=== PATIENT | female | born 1940 | race Caucasian/White ===

== ENCOUNTER → 2018-07-24 14:47 | Outpatient (CLI) | payer MEDICARE, SELFPAY ==
[2018-08-01 06:07] LABS: Clam <0.10 kU/L (Class 0); Codfish <0.10 kU/L (Class 0); Corn <0.10 kU/L (Class 0); Egg, White <0.10 kU/L (Class 0); Milk (Cow) <0.10 kU/L (Class 0); Peanut <0.10 kU/L (Class 0); SCALLOP <0.10 kU/L (Class 0); Shrimp <0.10 kU/L (Class 0); Soybean <0.10 kU/L (Class 0); Walnut, (Food) <0.10 kU/L (Class 0); Wheat <0.10 kU/L (Class 0)
[2018-08-01 12:32] LABS: SESAME SEED <0.10 kU/L (Class 0)
[2018-08-04 12:07] LABS: Alternaria tenuis <0.10 kU/L (Class 0); Ash, White <0.10 kU/L (Class 0); Aspergillus fumigatus <0.10 kU/L (Class 0); Bermuda Grass <0.10 kU/L (Class 0); Birch <0.10 kU/L (Class 0); Black Walnut <0.10 kU/L (Class 0); Cat Hair / Dander,Stand <0.10 kU/L (Class 0); Cedar, Mountain <0.10 kU/L (Class 0); Cladosporium herbarum <0.10 kU/L (Class 0); Cockroach, American <0.10 kU/L (Class 0); Cottonwood <0.10 kU/L (Class 0); D farinae Mite <0.10 kU/L (Class 0); D pteronyssinus <0.10 kU/L (Class 0); Dog Epithelia <0.10 kU/L (Class 0); Elm, American White <0.10 kU/L (Class 0); Immunoglobulin E < 2 IU/mL (6-495); Maple/Box Elder <0.10 kU/L (Class 0); Mulberry, White <0.10 kU/L (Class 0); Oak, White <0.10 kU/L (Class 0); PROEL- A/G Ratio 1.3 (0.7-1.7); PROEL- Albumin 3.6 g/dL (2.9-4.4); PROEL- Alpha-1 Globulin 0.3 g/dL (0.0-0.4); PROEL- Alpha-2 Globulin 0.8 g/dL (0.4-1.0); PROEL- Gamma Globulin 0.8 g/dL (0.4-1.8); PROEL- Globulin, Total 2.8 g/dL (2.2-3.9); PROEL- TOTAL PROTEIN 6.4 g/dL (6.0-8.5); Pecan <0.10 kU/L (Class 0); Penicillium Notatum <0.10 kU/L (Class 0); Pigweed, Rough <0.10 kU/L (Class 0); Ragweed, Short/Common <0.10 kU/L (Class 0); Russian Thistle <0.10 kU/L (Class 0); Sheep Sorrel <0.10 kU/L (Class 0); Sycamore, American <0.10 kU/L (Class 0); Timothy Grass <0.10 kU/L (Class 0)
[2018-08-05 12:50] LABS: C1 EST Inhibitor, Functional 107 (.); C1 Esterase Inhibitor, Quant 27 mg/dL (21-39); Hep C Antibodies <0.1 s/co ratio (0.0-0.9); Mouse Urine <0.10 kU/L (Class 0)
== END ==
PROVIDERS: Family Provider Family Medicine Geriatric Medicine; PCP Family Medicine Geriatric Medicine; Referring Provider Otolaryngology Otolaryngology/Facial Plastic Surgery; Visit Provider Otolaryngology Otolaryngology/Facial Plastic Surgery
DX: T78.40XA Allergy, unspecified, initial encounter (principal); T78.3XXA Angioneurotic edema, initial encounter
CPT/HCPCS: 36415; 82785; 83520; 84165; 86003; 86160; 86161; 86803

== ENCOUNTER → 2019-10-21 | Outpatient (CLI) | payer MEDICARE, SELFPAY ==
--- NOTE | 2019-10-21 11:20 | EKG12_ITS ---
Test Reason : PREOP Blood Pressure : / mmHG Vent. Rate : 083 BPM Atrial Rate : 083 BPM P-R Int : 204 ms QRS Dur : 086 ms QT Int : 404 ms P-R-T Axes : 051 -20 062 degrees QTc Int : 474 ms Normal sinus rhythm Low voltage QRS Borderline ECG Confirmed by TEOFILO PARKER ([id number]), editor school photograph ROHAN ROE ([id number]) on 10/25/2019 2:10:34 PM Referred By: Tony Gamble Confirmed By:TEOFILO PARKER
[2019-10-21 11:37] LABS: Hematocrit 43.9 % (37-47); Hemoglobin 14.4 g/dL (12.0-15.0); Mean Corp Hgb Conc 32.8 g/dL (32-36); Mean Corpuscular Hgb 32.1 pg (27.0-32.0); Mean Platelet Vol. 10.2 fl (6.2-12.0); Platelet Count 184 K/mm3 (150-450); RBC Distribution Width CV 12.9 % (11.6-14.6); RBC Distribution Width SD 45.6 fl (35.1-43.9); Red Blood Count 4.48 M/mm3 (4.2-5.4); White Blood Count 6.5 K/mm3 (4.4-11.0)
[2019-10-21 12:06] LABS: Anion Gap 5 (5-15); BUN 17 mg/dL (7-18); BUN/Creat Ratio 17.3 RATIO (10-20); Calcium,Total 9.3 mg/dL (8.5-10.1); Chloride 110 mmol/L (98-107); Creatinine, Serum 0.98 mg/dL (0.55-1.02); EST Glomerular Filtration Rate 58 mL/min (>60); Est Glom Filt Rate - Afr Amer 70 mL/min (>60); Glucose 107 mg/dL (74-106); Potassium 3.7 mmol/L (3.5-5.1); Sodium Level 141 mmol/L (136-145)
== END | disposition home or self-care (01) ==
PROVIDERS: PCP Nurse Practitioner Family; Referring Provider Surgery; Visit Provider Surgery
DX: Z01.812 Encounter for preprocedural laboratory examination (principal); I87.2 Venous insufficiency (chronic) (peripheral); E03.9 Hypothyroidism, unspecified; M79.606 Pain in leg, unspecified
CPT/HCPCS: 36415; 80048; 85027; 93005

== ENCOUNTER → 2019-10-25 | Outpatient (CLI) | payer MEDICARE, SELFPAY | END | disposition home or self-care (01) | PROVIDERS: PCP Nurse Practitioner Family; Referring Provider Surgery; Visit Provider Surgery | DX: I87.2 Venous insufficiency (chronic) (peripheral) (principal); E03.9 Hypothyroidism, unspecified; M79.606 Pain in leg, unspecified; Z11.59 Encounter for screening for other viral diseases | CPT/HCPCS: 87635; G2023; U0003 ==

== ENCOUNTER 2021-04-24 13:35 | Outpatient (CLI) | payer MEDICARE, SELFPAY ==
--- NOTE | 2021-04-24 13:35 | TISS_PTH ---
PATIENT: MONTY KING LOC: [facility] U#:[id number] AGE/SX: 80/F ROOM: RE04/24/[address]: Dr. Sunil Armas MD : 1940 BED: DIS: 04/24/2021 SPEC #: [id number] RECD: 04/25/21 09:58 STATUS: WHIT CAREN #: [id number] ELENITA: 04/24/21 13:[address]: Sunil Armas DEPT: SURGICAL PATHOLOGY RECD BY: Amber Olivo ENTERED: 04/25/21 13:12 SP TYPE: Tissue Bx JANNETTE DR: Telma Ramos, CUSTOMER SERVICE TELLER-C Tissues: TISSUE SURGICALLY REMOVED Procedures: Surgery Specimen Level III HEADER OPERATION: Skin tag removal PRE-OP DIAGNOSIS: Skin tag TISSUE SUBMITTED: Skin tag MICROSCOPIC DIAGNOSIS Skin tag, biopsy: Fragments of inflamed fibroepithelial polyp (skin tag). JOSE:pam 04/26/2021 MICROSCOPIC DESCRIPTION Slides are reviewed. GROSS DESCRIPTION Received in fixative is one container labeled with the patient's name and designated skin tag. The specimen consists of multiple pieces of segovia-white skin that in aggregate measure 1.5 x 1.5 x 0.3 cm. The specimen is totally submitted in one cassette. / SJ:rg 04/25/21 TC:5 CPT: 26507
== END 2021-04-24 23:59 | disposition short-term general hospital (02) ==
PROVIDERS: PCP Nurse Practitioner Family; Visit Provider Obstetrics & Gynecology
DX: L91.8 Other hypertrophic disorders of the skin (principal)
CPT/HCPCS: 88304; 88305

== ENCOUNTER 2021-07-03 10:00 | Day surgery (SDC) | payer MEDICARE, SELFPAY ==
--- NOTE | 2021-07-03 10:21 | EKG12_ITS ---
Test Reason : PRE OP Blood Pressure : / mmHG Vent. Rate : 064 BPM Atrial Rate : 064 BPM P-R Int : 192 ms QRS Dur : 090 ms QT Int : 476 ms P-R-T Axes : 039 -23 049 degrees QTc Int : 491 ms Normal sinus rhythm Prolonged QT Abnormal ECG When compared with ECG of 21-OCT-2019 11:36, No significant change was found Confirmed by MILLY DAWKINS, IRMA ([id number]), editorial assistant LAST WILD ([id number]) on 07/05/2021 1:35:24 PM Referred By: Rena Rain Confirmed By:THAI ATKINS MD
[2021-07-03 10:32] VITALS: BP 134/73; PULSE 64; RESP 16; TEMP 36.4; O2SAT 100; BMI 30.2
[2021-07-03] MEDS: Lactated Ringers 1,000 ML 15 ML IV (10:54)
[2021-07-03 10:58] LABS: Hematocrit 44.1 % (37-47); Hemoglobin 14.7 g/dL (12.0-15.0); Mean Corp Hgb Conc 33.3 g/dL (32-36); Mean Corpuscular Hgb 32.6 pg (27.0-32.0); Mean Corpuscular Volume 97.8 fL (81-99); Mean Platelet Vol. 10.2 fl (6.2-12.0); Platelet Count 157 K/mm3 (150-450); RBC Distribution Width SD 46.5 fl (35.1-43.9); Red Blood Count 4.51 M/mm3 (4.2-5.4); White Blood Count 5.9 K/mm3 (4.4-11.0)
[2021-07-03 11:23] LABS: Anion Gap 2 (5-15); BUN 14 mg/dL (7-18); BUN/Creat Ratio 14.8 RATIO (10-20); Calcium,Total 9.2 mg/dL (8.5-10.1); Chloride 108 mmol/L (98-107); Creatinine, Serum 0.95 mg/dL (0.55-1.02); EST Glomerular Filtration Rate 60 mL/min (>60); Est Glom Filt Rate - Afr Amer 72 mL/min (>60); Estimated Creatinine Clearance 45.26 ml/min; Glucose 109 mg/dL (74-106); Potassium 4.1 mmol/L (3.5-5.1); Sodium Level 139 mmol/L (136-145)
--- NOTE | 2021-07-03 12:24 | DCINST_ITS ---
Discharge Instructions Diet Discharge Diet: No restrictions Activity Discharge Activity: Return to Normal Activity Dressing / Incision Call your doctor if your incision/area has: Continuous Slow Oozing and Sudden Increased Bleeding Call your doctor if you observe: Fever of 101 or Higher, Inability to urinate and Inability to have a bowel movement Follow Up Care Please Follow Up With: Rena Rain MD When: in 2-3 weeks, call office for appt Test Results: Test results from this visit will be discussed in further detail at your follow-up appointment, if applicable. Discharge Plan Admission Attending Provider: Rena Rain Primary Care Provider: Telma Ramos NP Discharge Orders/Prescriptions Prescriptions: Continued clopidogrel [Plavix] 75 mg Tablet 75 mg PO DAILY RF: 0 aspirin 81 mg Tablet,Delayed Release (Dr/Ec) 81 mg PO DAILY RF: 0 levothyroxine [Euthyrox] 100 mcg Tablet 100 mcg PO SUTUTHSA RF: 0 levothyroxine [Euthyrox] 88 mcg Tablet 88 mcg PO MOWEFR RF: 0 losartan 25 mg Tablet 25 mg PO DAILY RF: 0 zinc 50 mg Tablet 50 mg PO DAILY RF: 0 furosemide 20 mg Tablet 20 mg PO PRN PRN (Reason: Edema) RF: 0 albuterol sulfate 90 mcg/actuation Hfa Aerosol Inhaler 1 inh INHALATION Q6H PRN (Reason: SOB) RF: 0 cholecalciferol (vitamin D3) [Vitamin D3] 125 mcg (5,000 unit) Tablet 125 mcg PO DAILY RF: 0 Probiotic Acidophilus 1.5 mg (250 million cell) Capsule 1,000 mmu cells PO DAILY RF: 0 atorvastatin 40 mg Tablet 40 mg PO QHS RF: 0 methenamine hippurate 1 gram Tablet 1 g PO BID RF: 0 nitroglycerin 0.4 mg Tablet, Sublingual 0.4 mg SUBLINGUAL Q5M PRN (Reason: CP) RF: 0 metoprolol tartrate 25 mg Tablet 25 mg PO QHS RF: 0 d-mannose 500 mg Capsule 1,000 mg PO DAILY RF: 0 chlorpheniramine maleate 4 mg Tablet 4 mg PO DAILY RF: 0 Referrals / Follow Up: Telma Ramos NP, CABIN SERVICE AGENT-C [Primary Care Provider] - Disposition Disposition (needs filled in before D/C Order can be placed): Home, Self Care
--- NOTE | 2021-07-03 12:26 | PCM.OPRPT ---
Problems Associated Problem List Diagnoses (1) Urinary tract infection: Report of Operation Date of Procedure: 07/03/21 Pre-Operative Diagnosis: Recurrent urinary tract infections Post-Operative Diagnosis: Urethral stenosis, urinary tract infections Surgery/Procedure Performed:: Urethral dilation, cystoscopy Surgeon: Rena Rain Type of Anesthesia: MAC Description of Procedure: The patient is an 81-year-old female with recurrent urinary tract infections unable to undergo office cystoscopy who now presents for evaluation under anesthesia. Informed consent was obtained. The patient was taken to the operating room and placed on to the operating room table. Anesthesia monitored the head, neck, airway, IV access and vital signs throughout the case. Once anesthesia was appropriate ministered, the patient was placed into dorsal lithotomy position was prepped and draped in usual sterile fashion. At this time the urethra was noted to be small and was dilated using female sounds from 16 Romansh up to 28 Romansh without difficulty. The cystoscope was then inserted through the urethra into the urinary bladder. Bilateral orifices were located in the area of the trigone. There were no masses, areas of erythema or foreign body identified. The bladder did appear to be distended with a thin mucosal wall. On pelvic examination there is a grade 2-3 rectocele with some stool present in the rectal vault. The patient was then awakened and taken to the recovery room in good condition. There were no complications during this procedure. Grafts/Implants Used: None Complications None Admit VTE Documentation VTE Present on Admission: Yes VTE Mechan Device Prophylaxis: SCD's VTE Pharm Prophylaxis ordered?: Yes
[2021-07-03 12:32] VITALS: BP 132/68; BP 134/73; PULSE 70; RESP 15; TEMP 36.7; O2SAT 100
[2021-07-03 12:45] VITALS: BP 126/63; BP 134/73; PULSE 61; RESP 18; O2SAT 99
[2021-07-03 12:50] VITALS: BP 134/73; BP 135/65; PULSE 65; RESP 15; TEMP 36.8; O2SAT 99
[2021-07-03 13:37] VITALS: BP 134/73; BP 148/68; PULSE 62; RESP 16; TEMP 35.9; O2SAT 94
== END 2021-07-03 23:59 | disposition home or self-care (01) ==
LOC: SDC 10:07 → AC 10:10
PROVIDERS: PCP Nurse Practitioner Family; Referring Provider Urology; Visit Provider Urology
PROC: 0TBB8ZX Excision of Bladder, Via Natural or Artificial Opening Endoscopic, Diagnostic (ICD-10-PCS; CPT 52281; principal; 2021-07-03 11:55)
DX: N35.92 Unspecified urethral stricture, female (principal); N39.0 Urinary tract infection, site not specified; R39.198 Other difficulties with micturition; R35.1 Nocturia; N95.2 Postmenopausal atrophic vaginitis; Z20.822 Contact with and (suspected) exposure to COVID-19; K59.04 Chronic idiopathic constipation; E03.9 Hypothyroidism, unspecified; Z79.890 Hormone replacement therapy; Z79.899 Other long term (current) drug therapy; Z79.02 Long term (current) use of antithrombotics/antiplatelets; Z79.82 Long term (current) use of aspirin; Z87.19 Personal history of other diseases of the digestive system
CPT/HCPCS: 52281; 80048; 85027; 87811; 93005; J7120; J2405

== ENCOUNTER → 2021-08-14 | Outpatient (CLI) | payer MEDICARE, SELFPAY ==
--- NOTE | 2021-08-14 14:34 | RAD_ITS ---
EXAM: XR LUMBOSACRAL SPINE, 4 OR 5 VIEWS CLINICAL INDICATION: spondylosis, lumbosacral region TECHNIQUE: Frontal, lateral and bilateral oblique views of the lumbar spine. This report was created using [employer] report [employer] technology. COMPARISON: None. FINDINGS: VERTEBRAE: Unremarkable. Preserved vertebral body height. No fracture. No spondylolisthesis. Preservation of the normal lumbar lordosis. No significant facet arthropathy. DISC SPACES: Left lateral bridging osteophyte identified at the L2-3 level. Moderate degenerative disc disease at L2-3 with mild disease at the levels. GASTROINTESTINAL TRACT: Unremarkable as visualized. Included bowel gas pattern is non-obstructive. OTHER FINDINGS: No pars interarticularis defects specifically. Calcified granulomas of the spleen. Prior cholecystectomy. RAD/L/S Spine Min 4 Views IMPRESSION: Multilevel degenerative disc disease, moderate at L2-3 where there is a left lateral region osteophyte also seen. Electronically Signed: Tyler Trevizo MD at 3:24 EDT ,
--- NOTE | 2021-08-14 14:35 | RAD_ITS ---
EXAM: XR PELVIS, 1 OR 2 VIEWS CLINICAL INDICATION: inflammatory polyarthropathy TECHNIQUE: Frontal view of the pelvis. This report was created using [employer] report generation technology. COMPARISON: None. FINDINGS: BONES/JOINTS: No acute or healing fracture or malalignment. Left lateral bridging osteophyte at the L2-3 level. No destructive or sclerotic lesions. Note that overlapping bowel shadows may however obscure fine detail. Sacroiliac joints are unremarkable. No widening of the pubic symphysis. The articular structures are unremarkable. SOFT TISSUES: Unremarkable. No soft tissue swelling or gas. VASCULATURE: Vascular calcifications in the pelvis. Vascular opacities in the pelvis. OTHER FINDINGS: No pars interarticularis defects. Small calcified granulomas of the spleen. Prior cholecystectomy. RAD/Pelvis 1 or 2 Views IMPRESSION: No acute or healing fracture or malalignment. Moderate degenerative changes at L2-3 level. Electronically Signed: Tyler Trevizo MD at 3:26 EDT Reading Location ID and State: [facility] / [place] Tel , Service support ,
[2021-08-14 18:08] LABS: Erythrocyte Sedimentation Rate 8 mm/hr (0-30)
[2021-08-14 18:10] LABS: Absolute Lymphocyte Count 2.27 X10^3/uL (0.83-4.51); Absolute Neutrophil Count 3.7 X10^3/uL (2.0-7.7); Basophil# 0.02 X10^3/uL; Basophil% 0.3 % (0-1); Eosinophil# 0.08 X10^3/uL; Eosinophils% 1.2 % (0-5); Hematocrit 42.7 % (37-47); Hemoglobin 14.1 g/dL (12.0-15.0); Lymphocyte # 2.27 X10^3/ul (0.83-4.51); Lymphocyte % 34.8 % (19-41); Mean Corpuscular Hgb 32.4 pg (27.0-32.0); Mean Corpuscular Volume 98.2 fL (81-99); Mean Platelet Vol. 10.8 fl (6.2-12.0); Monocyte# 0.42 X10^3/uL; Monocyte% 6.4 % (0-10); NRBC Flagged by Analyzer 0 % (0-5); Neutrophil # 3.72 X10^3/uL (2.7-7.7); Neutrophil % 57.1 % (47-70); Platelet Count 188 K/mm3 (150-450); RBC Distribution Width CV 13.4 % (11.6-14.6); RBC Distribution Width SD 49.1 fl (35.1-43.9); Red Blood Count 4.35 M/mm3 (4.2-5.4); White Blood Count 6.5 K/mm3 (4.4-11.0)
[2021-08-14 18:23] LABS: ALB/GLOB Ratio 1.1 RATIO (0.9-2.4); AST(SGOT) 19 U/L (15-37); Alanine Aminotransfer ALT/SGPT 27 U/L (13-56); Albumin, Serum 3.7 g/dL (3.2-5.0); Alkaline Phosphatase 92 U/L (45-117); Anion Gap 6 (5-15); BUN 18 mg/dL (7-18); BUN/Creat Ratio 21.3 RATIO (10-20); CRP < 2.90 mg/L (0.0-3.0); Calcium,Total 9.1 mg/dL (8.5-10.1); Chloride 105 mmol/L (98-107); Creatinine, Serum 0.85 mg/dL (0.55-1.02); EST Glomerular Filtration Rate 68 mL/min (>60); Est Glom Filt Rate - Afr Amer 83 mL/min (>60); Globulin 3.5 g/dL (2.2-4.2); Glucose 94 mg/dL (74-106); Protein, Total 7.2 g/dL (6.4-8.2); Rheumatoid Factor < 10.0 IU/mL (<15); Sodium Level 140 mmol/L (136-145)
[2021-08-15 08:31] LABS: Hepatitis B Surface Antibody Non-Reactive; Hepatitis B Surface Antigen Non-Reactive (Nonreactive); Hepatitis C Antibody Non-Reactive (Nonreactive)
[2021-08-16 17:26] LABS: ANTINUCLEAR ANTIBODIES DIRECT Negative (Negative)
[2021-08-22 16:35] LABS: CCP IgG Antibodies 16 units (0-19); HLA B27 Negative (.)
== END | disposition home or self-care (01) ==
LOC: MTLAB 14:28
PROVIDERS: PCP Nurse Practitioner Family; Referring Provider Internal Medicine Rheumatology; Visit Provider Internal Medicine Rheumatology
DX: M06.4 Inflammatory polyarthropathy (principal); I21.4 Non-ST elevation (NSTEMI) myocardial infarction; M79.7 Fibromyalgia; M18.0 Bilateral primary osteoarthritis of first carpometacarpal joints; M17.0 Bilateral primary osteoarthritis of knee; M47.897 Other spondylosis, lumbosacral region; I10 Essential (primary) hypertension; I25.10 Atherosclerotic heart disease of native coronary artery without angina pectoris; E03.9 Hypothyroidism, unspecified; E78.5 Hyperlipidemia, unspecified; J30.9 Allergic rhinitis, unspecified; K21.9 Gastro-esophageal reflux disease without esophagitis; I83.893 Varicose veins of bilateral lower extremities with other complications; Z87.19 Personal history of other diseases of the digestive system; Z87.440 Personal history of urinary (tract) infections; M51.36 Other intervertebral disc degeneration, lumbar region; M47.817 Spondylosis without myelopathy or radiculopathy, lumbosacral region
CPT/HCPCS: 36415; 72110; 72170; 80053; 81374; 85025; 85652; 86038; 86140; 86200; 86431; 86706; 86803; 87340

== ENCOUNTER 2023-05-14 13:16 | Emergency (ER) | payer MEDICARE, SELFPAY ==
[2023-05-14 13:18] VITALS: BP 161/91; PULSE 82; RESP 16; TEMP 35.7; O2SAT 95
[2023-05-14 16:05] VITALS: PULSE 85; RESP 16; O2SAT 97; BMI 29.7
--- NOTE | 2023-05-14 16:27 | CT_ITS ---
STUDY: CT BRAIN WITHOUT CONTRAST REASON FOR EXAM: Female, 82 years old. Headache after trauma RADIATION DOSAGE (If Supplied By Facility): CTDIvol = ( 44.99 ) mGy, DLP = ( 829.85 ) mGycm TECHNIQUE: Transaxial CT imaging of the brain was performed without administration of intravenous contrast material. Individualized dose optimization techniques were used for this CT. COMPARISON: No relevant priors. FINDINGS: No clearly demonstrated fracture, but there is an air-fluid level within the left maxillary sinus and subcutaneous emphysema concerning for a likely fracture somewhere in the left facial bones or paranasal sinuses. Please see dedicated CT sinus study for further details There is mild cerebral atrophy with widening of the extra-axial spaces and ventricular dilatation. There are areas of decreased attenuation within the white matter tracts of the supratentorial brain, consistent with microvascular disease changes. Old lacunar infarct in the right basal ganglia. Normal brainstem. There is mild cerebellar atrophy. There is no intracranial hemorrhage. There are no findings of an acute ischemic infarction. Air-fluid level in the left maxillary sinus CT/Brain/Head without Contrast IMPRESSION: Atrophic, periventricular, deep white matter changes with old lacunar infarct in the right basal ganglia. Air-fluid level in the left maxillary sinus with cutaneous emphysema suspicious for fracture though one is not seen on this study Electronically Signed: Derian Robin MD at 17:04 EST ,
--- NOTE | 2023-05-14 16:27 | CT_ITS ---
STUDY: CT MAXILLOFACIAL SINUSES REASON FOR EXAM: Female, 82 years old. trauma RADIATION DOSAGE (If Supplied By Facility): CTDIvol = ( 29.38 ) mGy, DLP = ( 584.19 ) mGycm TECHNIQUE: The patient was scanned in a multi detector CT scanner. High resolution axial imaging was performed without the administration of intravenous contrast material. Sagittal and coronal images were reconstructed. Individualized dose optimization techniques were used for this CT. COMPARISON: None. FINDINGS: Acute fractures noted in the left maxilla. These include a comminuted depressed fracture of the lateral inferior left maxillary sinus wall, and there is a nondisplaced fracture of the medial left maxillary sinus wall. There are also nondisplaced fractures noted in the posterior left maxillary sinus and nondisplaced fractures are suspected in both pterygoid plates There is an air-fluid level within the left maxillary sinus likely representing hemorrhage. Left ostiomeatal complex is occluded. FRONTAL SINUSES: Normal aeration, without mucosal inflammatory disease. ETHMOIDAL SINUSES: Normal aeration, without mucosal inflammatory disease. SPHENOIDAL SINUSES: Normal aeration, without mucosal inflammatory disease. There is patency of the right maxillary infundibuli with normal uncinate processes, ethmoid bullae, and hiatus semilunaris. Normal bilateral middle turbinates. Normal bilateral inferior turbinates. Normal midline nasal septum. There is patency of the bilateral nasal airways. CT/Sinus/Facial Bone IMPRESSION: Multiple minimally displaced left-sided maxillary fractures including the inferior lateral wall of the left maxillary sinus, the medial wall of the maxillary sinus, and the posterior wall of the left maxillary sinus and of the left pterygoid plates, There is also a fracture suspected at the junction of the posterior right maxilla and pterygoid plates. Air-fluid level in the left maxillary sinus at least part might be hemorrhage, there is occlusion of the left ostiomeatal complex Subcutaneous emphysema noted in the soft tissues medial to the mandible Electronically Signed: Derian Robin MD at 17:15 EST ,
--- NOTE | 2023-05-14 16:27 | CT_ITS ---
STUDY: CT CERVICAL SPINE WITHOUT CONTRAST REASON FOR EXAM: Female, 82 years old. trauma RADIATION DOSAGE (If Supplied By Facility): CTDIvol = ( 21.09 ) mGy, DLP = ( 404.84 ) mGycm TECHNIQUE: High resolution transaxial imaging was performed without contrast material. Sagittal and coronal images were reconstructed. Individualized dose optimization techniques were used for this CT. COMPARISON: None FINDINGS: Normal craniovertebral junction. There are degenerative changes of the anterior atlantoaxial articulation. Normal odontoid process. Normal cervical lordosis. Normal vertebral bodies and posterior osseous elements. C2-3: Normal endplates. Mild disc space narrowing.. Normal central canal and intervertebral neuroforamina. C3-4: Normal endplates. Mild disc space narrowing.. Normal central canal and intervertebral neuroforamina. C4-5: Normal endplates. Mild disc space narrowing.. Normal central canal and intervertebral neuroforamina. C5-6: Normal endplates. Disc space narrowing. No central canal narrowing, there is mild bilateral foraminal narrowing due to facet joint hypertrophy. C6-7: Normal endplates. Mild disc space narrowing.. Normal central canal and intervertebral neuroforamina. C7-T1: Normal endplates. Normal disc height and morphology. Normal central canal and intervertebral neuroforamina. Normal visualized soft tissue structures. CT/Spine Cervical without Contras IMPRESSION: Multilevel degenerative changes, as described above. Electronically Signed: Derian Robin MD at 17:24 EST ,
--- NOTE | 2023-05-14 16:28 | EX.ED.GENINJ ---
HPI History of Present Illness Chief Complaint: Head Injury Informant: patient Onset/Context/Timing Onset: Today Narrative Narrative: Patient presents after a fall in a parking lot today. She believes she stepped off the edge of the sidewalk and fell striking her face. She did not lose consciousness. She did have blood from her left nare and chipped one of her teeth. Patient is on Plavix and aspirin. [facility] Medical History Back pain Bladder disease Cardiology follow-up encounter COPD (chronic obstructive pulmonary disease) Heartburn High cholesterol History of diverticulitis History of edema History of heart attack History of hiatal hernia History of renal disease History of ulceration Hypertension Non-smoker Post-menopausal Redness of skin Thyroid disease Urinary tract infection Wears dentures Wears glasses Home Medications Lactobacillus acidophilus 250 million cell capsule (Probiotic Acidophilus) 1,000 mmu cells PO DAILY 06/26/21 [History Last Taken Unknown] albuterol sulfate 90 mcg/actuation aerosol inhaler 1 inh inhalation Q6H PRN SOB 06/26/21 [History Last Taken Unknown] aspirin 81 mg tablet,delayed release 81 mg PO DAILY 06/26/21 [History Last Taken 06/30/21] atorvastatin 40 mg tablet 40 mg PO QHS 06/26/21 [History Last Taken Unknown] chlorpheniramine maleate 4 mg tablet 4 mg PO DAILY 06/26/21 [History Last Taken Unknown] cholecalciferol (vitamin D3) 125 mcg (5,000 unit) tablet (Vitamin D3) 125 mcg PO DAILY 06/26/21 [History Last Taken Unknown] clopidogrel 75 mg tablet (Plavix) 75 mg PO DAILY 06/26/21 [History Last Taken 06/30/21] d-mannose 500 mg capsule 1,000 mg PO DAILY 06/26/21 [History Last Taken Unknown] furosemide 20 mg tablet 20 mg PO PRN PRN Edema 06/26/21 [History Last Taken Unknown] levothyroxine 100 mcg tablet (Euthyrox) 100 mcg PO SUTUTHSA 06/26/21 [History Last Taken Unknown] levothyroxine 88 mcg tablet (Euthyrox) 88 mcg PO MOWEFR 06/26/21 [History Last Taken Unknown] losartan 25 mg tablet 25 mg PO DAILY 06/26/21 [History Last Taken Unknown] methenamine hippurate 1 gram tablet 1 g PO BID 06/26/21 [History Last Taken Unknown] metoprolol tartrate 25 mg tablet 25 mg PO QHS 06/26/21 [History Last Taken Unknown] nitroglycerin 0.4 mg sublingual tablet 0.4 mg sublingual Q5M PRN CP 06/26/21 [History Last Taken Unknown] zinc 50 mg tablet 50 mg PO DAILY 06/26/21 [History Last Taken Unknown] doxycycline monohydrate 100 mg capsule 100 mg PO BID #20 CAPSULES 05/14/23 [Rx Last Taken Unknown] Allergy/AdvReac Type Severity Reaction Status Date / Time Penicillins Allergy Rash Verified 05/14/23 13:17 Sulfa (Sulfonamide Allergy Rash Verified 05/14/23 13:17 Antibiotics) Surgical History History of cardiac catheterization History of coronary artery stent placement History of esophagogastroduodenoscopy (EGD) Hx laparoscopic cholecystectomy Hx of bilateral breast reduction surgery Hx of colonoscopy Hx of foot surgery Hx of hysterectomy Hx of left cataract extraction Hx of right cataract extraction Social History Smoking Status: Never smoker ROS ROS ED Constitutional Constitutional ED: Denies chills or fever(s) Eyes Eyes: Denies change in vision or discharge from eye(s) ENT ENT ED: Reports other Details: Epistaxis left nare ; Denies discharge from eye(s) or sore throat Cardiovascular Cardiovascular: Denies chest pain or palpitations Respiratory/Chest Respiratory/Chest: Denies cough or dyspnea Gastrointestinal Gastrointestinal: Denies abdominal pain, nausea or vomiting Musculoskeletal Musculoskeletal: Denies back pain or extremity pain Integumentary Denies Abrasions or rash Neurologic Neurologic: Denies headache(s) or weakness Allergic/Immunologic Allergic/Immunologic ED: Denies lip swelling or urticaria EXAM Physical Exam Const Vital Signs: 05/14/23 13:18 05/14/23 16:05 05/14/23 16:05 Temperature 96.2 F L Temperature Source Temporal Pulse Rate 82 85 Respiratory Rate 16 16 Respiratory Effort Normal Respiratory Depth Normal Respiratory Pattern Normal Blood Pressure 161/91 H Blood Pressure Mean 114 Pulse Ox 95 97 Oxygen Delivery Method Room Air Room Air Room Air Positive well nourished and well developed General Appearance ED: well developed HEENT HEENT Narrative: Ecchymosis noted to her chin and left lower face. Mandible appears stable. Dried blood noted in the left nare. No septal hematoma. Eyes PERRL and EOMs intact bilaterally Neck Neck Narrative: No C-spine tenderness. No step-offs. Chest Wall inspection of chest normal and palpation of chest normal Resp normal respiratory effort and clear to auscultation bilaterally Cardio regular rhythm Rate: regular rate GI non-tender Palpation: soft Extremity normal to inspection and full ROM Neuro oriented x3 Neuro Narrative: No focal neurologic deficit. Psych mental status grossly normal MDM MDM MDM Narrative Medical decision making narrative: Patient sent for CT imaging of the head, C-spine, and facial bones to evaluate for possible fracture, bleed, edema. Radiography Diagnostic Testing: Clinical Impression(s) from Imaging Studies Brain CT 05/14/23 16:27 IMPRESSION: Atrophic, periventricular, deep white matter changes with old lacunar infarct in the right basal ganglia. Air-fluid level in the left maxillary sinus with cutaneous emphysema suspicious for fracture though one is not seen on this study Electronically Signed: Derian Robin MD at 17:04 EST , Cervical Spine CT 05/14/23 16:27 IMPRESSION: Multilevel degenerative changes, as described above. Electronically Signed: Derian Robin MD at 17:24 EST , Facial/Sinus 05/14/23 16:27 IMPRESSION: Multiple minimally displaced left-sided maxillary fractures including the inferior lateral wall of the left maxillary sinus, the medial wall of the maxillary sinus, and the posterior wall of the left maxillary sinus and of the left pterygoid plates, There is also a fracture suspected at the junction of the posterior right maxilla and pterygoid plates. Air-fluid level in the left maxillary sinus at least part might be hemorrhage, there is occlusion of the left ostiomeatal complex Subcutaneous emphysema noted in the soft tissues medial to the mandible Electronically Signed: Derian Robin MD at 17:15 EST , Treatment and Re-Evaluation Narrative: CT scan of the head reveals white matter changes consistent with old lacunar infarct. Air-fluid level in the left maxillary sinus with cutaneous emphysema suspicious for a fracture. CT scan of the facial bones revealed multiple minimally displaced left-sided maxillary fractures including the inferior lateral wall of the maxillary sinus. Medial wall and posterior wall also is noted. CT scan of the C-spine reveals multilevel degenerative changes with no fracture. Test results discussed with the patient. Given that she has had nosebleed and sinus fractures, she will be covered with antibiotics to prevent infection. She wishes to follow-up with Dr. Garzon, ENT in [place]. Patient is comfortable this plan. Discharge Plan Triage Chief Complaint: Head Injury Other Complaint: Dental Nosebleed ED Provider: Lindsey Pisano Dx/Rx/DC Orders Clinical Impression: Facial bone fracture, Fall Instructions: Nosebleed, ED Facial Fracture, ED Head Injury (Adult) Prescriptions: New doxycycline monohydrate 100 mg capsule 100 mg PO BID Qty: 20 0RF No Action clopidogrel [Plavix] 75 mg Tablet 75 mg PO DAILY aspirin 81 mg Tablet,Delayed Release (Dr/Ec) 81 mg PO DAILY levothyroxine [Euthyrox] 100 mcg Tablet 100 mcg PO SUTUTHSA levothyroxine [Euthyrox] 88 mcg Tablet 88 mcg PO MOWEFR losartan 25 mg Tablet 25 mg PO DAILY zinc 50 mg Tablet 50 mg PO DAILY furosemide 20 mg Tablet 20 mg PO PRN PRN (Reason: Edema) albuterol sulfate 90 mcg/actuation Hfa Aerosol Inhaler 1 inh INHALATION Q6H PRN (Reason: SOB) cholecalciferol (vitamin D3) [Vitamin D3] 125 mcg (5,000 unit) Tablet 125 mcg PO DAILY Probiotic Acidophilus 1.5 mg (250 million cell) Capsule 1,000 mmu cells PO DAILY atorvastatin 40 mg Tablet 40 mg PO QHS methenamine hippurate 1 gram Tablet 1 g PO BID nitroglycerin 0.4 mg Tablet, Sublingual 0.4 mg SUBLINGUAL Q5M PRN (Reason: CP) metoprolol tartrate 25 mg Tablet 25 mg PO QHS d-mannose 500 mg Capsule 1,000 mg PO DAILY chlorpheniramine maleate 4 mg Tablet 4 mg PO DAILY Primary Care Provider: Telma Ramos NP Referrals: Telma Ramos NP, JOINERY SETTER OUT-C [Primary Care Provider] - 1 Week Activity Restrictions/Additional Instructions: Please follow-up with Dr Garzon, ENT as well as your primary care physician. Disposition Disposition: Home, Self Care Discharge Date/Time: 05/14/23 19:14
[2023-05-14] MEDS: Doxycycline 100 MG CAPSULE PO (19:10)
== END 2023-05-14 19:14 | disposition home or self-care (01) ==
PROVIDERS: Emergency Provider Emergency Medicine; PCP Nurse Practitioner Family; Visit Provider Emergency Medicine
DX: S02.40DA Maxillary fracture, left side, initial encounter for closed fracture (principal); J44.9 Chronic obstructive pulmonary disease, unspecified; S02.40CA Maxillary fracture, right side, initial encounter for closed fracture; R04.0 Epistaxis; Z79.02 Long term (current) use of antithrombotics/antiplatelets; Z79.82 Long term (current) use of aspirin; E78.00 Pure hypercholesterolemia, unspecified; I10 Essential (primary) hypertension; W10.1XXA Fall (on)(from) sidewalk curb, initial encounter
CPT/HCPCS: 70450; 70486; 72125; 99284

== ENCOUNTER → 2024-03-08 | Outpatient (CLI) | payer MEDICARE, SELFPAY ==
--- NOTE | 2024-03-08 17:51 | CYSPIN_PTH ---
PATIENT: MONTY KING LOC: [facility] U#:[id number] AGE/SX: 83/F ROOM: RE03/08/[address]: Dr. Rena Rain MD : 1940 BED: DIS: 03/08/2024 SPEC #: [id number] RECD: 03/09/24 07:31 STATUS: WHIT REPetr #: [id number] ELENITA: 03/08/24 17:[address]: Rena Rain DEPT: CYTOLOGY RECD BY: Charlotte Paul ENTERED: 03/09/24 07:32 SP TYPE: CYSPIN FL OTHR DR: Telma Ramos, WELT DRAWER-C Tissues: Urine Procedures: Pap Stain (control) Special Stain Group II Cytospin Fluid HEADER OPERATION: Not noted PRE-OP DIAGNOSIS: Gross hematuria TISSUE SUBMITTED: Urine for cytology DIAGNOSIS CYTOLOGY Urine for cytology (cytospin): Negative for high grade urothelial carcinoma (NHGUC), Leeanne System Category II. Acute inflammation. See comment. 03/09/2024 COMMENT This specimen predominantly consists of squamous epithelial cells. The Leeanne System for urine cytology diagnostic categorization was used in the evaluation of this case. CYTOLOGY STUDY Slides are reviewed. CYTOLOGY GROSS Received is 20 ml of yellow-cloudy fluid labeled with the patient's name and and designated per the requisition as urine. Submitted for cytology preparation. Mr 03/09/2024 TC:2 CPT: 56006
[2024-03-08 17:52] LABS: Cytology, Body Fluid / CSF SEE PATHOLOGY REPORT
== END | disposition home or self-care (01) ==
PROVIDERS: PCP Nurse Practitioner Family; Referring Provider Urology; Visit Provider Urology
DX: R31.0 Gross hematuria (principal)
CPT/HCPCS: 88108; 88313

== ENCOUNTER → 2024-04-01 | Outpatient (CLI) | payer MEDICARE, MEDICAID, SELFPAY ==
--- NOTE | 2024-04-01 13:44 | CT_ITS ---
STUDY: CT ABDOMEN AND PELVIS WITHOUT AND WITH CONTRAST - REASON FOR EXAM: Female, 83 years old. GROSS HEMATURIA RADIATION DOSAGE (If Supplied By Facility): CTDIvol = ( 13.98 ) mGy, DLP = ( 2222.76 ) mGycm TECHNIQUE: 100ML OF ISOVUVE 370 was administered. Transaxial images were obtained from the dome of the diaphragm to the symphysis pubis. Multiplanar coronal and sagittal images were reformatted. The protocol utilizes one or more of the following dose reduction techniques: automated exposure control, adjustment of mA and/or kV according to patient size,and/or use of iterative reconstruction technique. COMPARISON: FINDINGS: The visualized lung bases are unremarkable. The visualized portions of the heart are within normal limits. Normal liver. Status post cholecystectomy. No significant dilatation of the extrahepatic biliary system. Granulomatous calcifications in the spleen. Borderline ductal prominence in the pancreas. Normal bilateral adrenal glands. Normal visualized stomach. Normal small intestine. Diverticulosis of the colon. The appendix is not visualized. Normal abdominal aorta. No retroperitoneal adenopathy. Bilateral renal cysts. Normal urinary bladder. Small fatty umbilical hernia. Degenerative vertebral changes. CT/CT Abd/Pelvis W/WO Contrast IMPRESSION: Colonic diverticulosis. Bilateral renal cysts. Small fatty umbilical hernia. Electronically Signed: Dru Weir DO at 9:42 EST ,
[2024-04-01 13:55] LABS: CREATININE FINGERSTICK < 1.0 mg/dL (0.55-1.02); EGFR FINGERSTICK > 60.0000 mL/min (>60)
== END | disposition home or self-care (01) ==
PROVIDERS: PCP Nurse Practitioner Family; Referring Provider Urology; Visit Provider Urology
DX: R31.0 Gross hematuria (principal)
CPT/HCPCS: 74178; Q9967; A4216

== ENCOUNTER 2024-05-06 07:07 | Day surgery (SDC) | payer MEDICARE, MEDICAID, SELFPAY ==
--- NOTE | 2024-04-27 19:20 | PAT.ANE_ITS ---
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
--- NOTE | 2024-04-27 19:20 | PAT.ANESEVAL ---
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 When Was Last Pacemaker Check QUESTION #4 FULL TEXT: You/Your Family Experience fever (hyperthermia) with Anesthesia Last Oral Intake Last Oral intake: Last Oral Intake NPO since Meds taken in AM with sips of water? Meds patient instructed to take am of surgery PONV PONV - top precipitator operator helper: PONV - top precipitator operator helper Female Yes 04/27/24 13:35 HX of Motion Sickness No 04/27/24 13:35 HX of N/V After Surgery No 04/27/24 13:35 Non-Smoker Yes 04/27/24 13:35 Duration of Surgery greater No 04/27/24 13:35 than 60 minutes Number of Risk Factors 2 04/27/24 13:35 PONV Score Moderate Risk 04/27/24 13:35 Height & Weight Height & Weight: Anesthesia: Height & Weight Height 5 ft 6 in 05/14/23 13:18 Respiratory Assessment Respiratory Assessment - top precipitator operator helper: Respiratory Tract Infection Hx - top precipitator operator helper Hx Respiratory Tract Infection No 04/27/24 13:35 STOP Sleep Apnea STOP Sleep Apnea - top precipitator operator helper: STOP Sleep Apnea - top precipitator operator helper Hx Hypertension Yes: CONTROLLED WITH MED 04/27/24 13:35 Hx Sleep Apnea No 04/27/24 13:35 CPAP BIPAP Do you snore loudly (louder No 04/27/24 13:35 than talking or can be heard Do you often feel tired/ No 04/27/24 13:35 fatigued/ sleepy during daytime? Has anyone observed you stop No 04/27/24 13:35 breathing during sleep? STOP Results Negative 04/27/24 13:35 QUESTION #5 FULL TEXT : Do you snore loudly (louder than talking or can be heard through closed doors)? 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 Specify any problems Hx of Preganancy in last 3 N/A 04/27/24 13:35 Months Nurse Filling Out Transfusion [facility]BU[facility]ER 04/27/24 13:35 & Questions: Date: 04/27/24 04/27/24 13:35 Time: 13:38 04/27/24 13:35 Patient unable to answer at this time (ie. confused, unrespo /Reproduction History /Reproductive History - top precipitator operator helper: /Reproductive Hx- top precipitator operator helper Hx Now No 04/27/24 13:35 Gestational Age (in weeks): EDC: Hx Hx Para Hx Section SAB No 04/27/24 13:35 [facility] Medical History (Updated 04/27/24 @ 13:44 by Faith Yarbrough) Hypothyroid Urinary tract infection Wears glasses Wears dentures Post-menopausal Redness of skin Thyroid disease Bladder disease History of renal disease High cholesterol Back pain History of hiatal hernia History of ulceration History of diverticulitis Heartburn Non-smoker COPD (chronic obstructive pulmonary disease) History of edema Hypertension Cardiology follow-up encounter History of heart attack Home Medications ?Medication ?Instructions ?Recorded ?Last Taken ?Type Lactobacillus acidophilus 250 1,000 mmu cells PO DAILY 06/26/21 Unknown History million cell capsule (Probiotic Acidophilus) albuterol sulfate 90 mcg/actuation 1 inh inhalation Q6H PRN SOB 06/26/21 Unknown History aerosol inhaler aspirin 81 mg tablet,delayed 81 mg PO DAILY 06/26/21 06/30/21 History release atorvastatin 40 mg tablet 40 mg PO QHS 06/26/21 Unknown History chlorpheniramine maleate 4 mg 4 mg PO DAILY 06/26/21 Unknown History tablet cholecalciferol (vitamin D3) 125 125 mcg PO DAILY 06/26/21 Unknown History mcg (5,000 unit) tablet (Vitamin D3) clopidogrel 75 mg tablet (Plavix) 75 mg PO DAILY 06/26/21 06/30/21 History furosemide 20 mg tablet 20 mg PO PRN PRN Edema 06/26/21 Unknown History losartan 25 mg tablet 25 mg PO DAILY 06/26/21 Unknown History methenamine hippurate 1 gram tablet 1 g PO BID 06/26/21 Unknown History metoprolol tartrate 25 mg tablet 25 mg PO QHS 06/26/21 Unknown History nitroglycerin 0.4 mg sublingual 0.4 mg sublingual Q5M PRN CP 06/26/21 Unknown History tablet zinc 50 mg tablet 50 mg PO DAILY 06/26/21 Unknown History levothyroxine 112 mcg capsule 112 mcg PO DAILY 04/27/24 Unknown History Allergy/AdvReac Type Severity Reaction Status Date / Time Penicillins Allergy Rash Verified 04/27/24 13:31 Sulfa (Sulfonamide Allergy Rash Verified 04/27/24 13:31 Antibiotics) Surgical History (Updated 04/27/24 @ 13:44 by Faith Yarbrough) History of appendectomy History of biopsy of bladder History of cardiac catheterization Hx of colonoscopy History of coronary artery stent placement Hx of foot surgery Hx of right cataract extraction Hx of left cataract extraction Hx laparoscopic cholecystectomy History of esophagogastroduodenoscopy (EGD) Hx of bilateral breast reduction surgery Hx of hysterectomy Social History Smoking Status: Never smoker Audit: Pertinent Findings Pertinent Findings EKG Perinent findings: July 03, 2021. Normal sinus rhythm. Prolonged QT. Compared to EKG of October 21, 2019. No significant change was noted April 12, 2024. Normal sinus rhythm at 80 bpm. Consult pertinent findings: April 12, 2024. Dr. Rockwell. 1. Coronary artery disease in [place] artery. Status post PCI of the LAD. Has residual 50% in the proximal diagonal. Ejection fraction improved to normal. Denies any angina or dyspnea on exertion. Continue aspirin and statins. 2. Cardiomyopathy. History of ejection fraction of 25 to 30%. Repeat echo in 2020 showed improved ejection fraction to 60 to 65%. 3. Hypertension. Patient apparently had a low blood pressure at outside clinic. Multiple checks here were normal. Continue current medications. Recommendation Anesthesia Recommendation Anesthesia recommendation: OPTIMIZED for anesthesia
[2024-05-06] VITALS (8 sets, daily range): BP systolic 129–176; BP diastolic 53–68; PULSE 62–65; RESP 16–20; TEMP 36.2–36.6; O2SAT 98–100
[2024-05-06] MEDS: 0.9% Normal Saline (1000mL) 1,000 ML 15 ML IV (07:52)
--- NOTE | 2024-05-06 07:56 | PCM.PRE.AN2 ---
ASA Classification* ASA Classification ASA Classification: 3 Assessment & Plan Anesthesia* Anesthesia Assessment Anesthesia Assessment: Discussed sedation and/or anesthesia options, risks, benefits, and alternatives with patient/parents/legal guardian/POA. Questions invited. The patient/parents/legal guardian/POA seems to understand and agrees to proceed with anesthesia plan. Reviewed the physical assessment, medical history, allergy history and patient home medications list prior to surgery/procedure/anesthetic and documented any changes. Performed airway and anesthesia risk assessments. Anesthesia Type Anesthesia Type: General Anesthesia Focused Assessment* Temperature: 97.2 F Pulse Rate: 62 Blood Pressure: 176/67 Respiratory Rate: 16 Pulse Ox: 99 Airway Assessment Mouth opens: >3 cm Mallampati Score: II Focused Labs Anesthesia Preop lab: CBC WBC 6.5 K/mm3 (4.4-11.0) 08/14/21 14:33 RBC 4.35 M/mm3 (4.2-5.4) 08/14/21 14:33 Hgb 14.1 g/dL (12.0-15.0) 08/14/21 14:33 Hct 42.7 % (37-47) 08/14/21 14:33 Plt Count 188 K/mm3 (150-450) 08/14/21 14:33 CHEMISTRY Potassium 3.0 mmol/L (3.5-5.1) L 08/14/21 14:33 Sodium 140 mmol/L (136-145) 08/14/21 14:33 BUN 18 mg/dL (7-18) 08/14/21 14:33 Creatinine 0.85 mg/dL (0.55-1.02) 08/14/21 14:33 Glucose 94 mg/dL (74-106) 08/14/21 14:33 COAG Pre-Assessment Diagnosis/Proposed Procedure Planned Operative Procedure(s): (N/A) Cysto, pelvic exam under anesthesia, Possible bilateral ureteroscopy Anesthesia History 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 When Was Last Pacemaker Check QUESTION #4 FULL TEXT: You/Your Family Experience fever (hyperthermia) with Anesthesia Last Oral Intake Last Oral intake: Last Oral Intake NPO since 05:30 05/06/24 07:27 Meds taken in AM with sips of water? Meds patient instructed to take am of surgery PONV PONV - welding systems and equipment repairer: PONV - welding systems and equipment repairer Female Yes 04/27/24 13:35 HX of Motion Sickness No 04/27/24 13:35 HX of N/V After Surgery No 04/27/24 13:35 Non-Smoker Yes 04/27/24 13:35 Duration of Surgery greater No 04/27/24 13:35 than 60 minutes Number of Risk Factors 2 04/27/24 13:35 PONV Score Moderate Risk 04/27/24 13:35 Height & Weight Height & Weight: Anesthesia: Height & Weight Height 5 ft 6 in 05/06/24 07:27 Weight: 84.4 kg 05/06/24 07:27 Body Mass Index (BMI) 30.0 05/06/24 07:27 Respiratory Assessment Respiratory Assessment - welding systems and equipment repairer: Respiratory Tract Infection Hx - welding systems and equipment repairer Hx Respiratory Tract Infection No 04/27/24 13:35 STOP Sleep Apnea STOP Sleep Apnea - welding systems and equipment repairer: STOP Sleep Apnea - welding systems and equipment repairer Hx Hypertension Yes: CONTROLLED WITH MED 04/27/24 13:35 Hx Sleep Apnea No 04/27/24 13:35 CPAP BIPAP Do you snore loudly (louder No 04/27/24 13:35 than talking or can be heard Do you often feel tired/ No 04/27/24 13:35 fatigued/ sleepy during daytime? Has anyone observed you stop No 04/27/24 13:35 breathing during sleep? STOP Results Negative 04/27/24 13:35 QUESTION #5 FULL TEXT : Do you snore loudly (louder than talking or can be heard through closed doors)? 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 Specify any problems Hx of Preganancy in last 3 N/A 04/27/24 13:35 Months Nurse Filling Out Transfusion [facility]BU[facility] 04/27/24 13:35 & Questions: Date: 04/27/24 04/27/24 13:35 Time: 13:38 04/27/24 13:35 Patient unable to answer at this time (ie. confused, unrespo /Reproduction History /Reproductive History - welding systems and equipment repairer: /Reproductive Hx- welding systems and equipment repairer Hx Now No 04/27/24 13:35 Gestational Age (in weeks): EDC: Hx Hx Para Hx Section SAB No 04/27/24 13:35 Active Medications Active Medications: Current Medications Generic Name Dose Route Start Last Admin Trade Name Freq PRN Reason Stop Dose Admin Ciprofloxacin 400 mg in 200 mls @ 200 mls/hr 05/06/24 08:30 Cipro IV 05/06/24 09:29 PREOP ONE Sodium Chloride 1,000 mls @ 15 mls/hr 05/06/24 07:15 05/06/24 07:52 IV 05/11/24 20:34 15 mls/hr .Q48H CASSIDY Administration Protocol PFSH Medical History Hypothyroid Urinary tract infection Wears glasses Wears dentures Post-menopausal Redness of skin Thyroid disease Bladder disease History of renal disease High cholesterol Back pain History of hiatal hernia History of ulceration History of diverticulitis Heartburn Non-smoker COPD (chronic obstructive pulmonary disease) History of edema Hypertension Cardiology follow-up encounter History of heart attack Home Medications ?Medication ?Instructions ?Recorded ?Last Taken ?Type Lactobacillus acidophilus 250 1,000 mmu cells PO DAILY 06/26/21 Unknown History million cell capsule (Probiotic Acidophilus) albuterol sulfate 90 mcg/actuation 1 inh inhalation Q6H PRN SOB 06/26/21 Unknown History aerosol inhaler aspirin 81 mg tablet,delayed 81 mg PO DAILY 06/26/21 06/30/21 History release atorvastatin 40 mg tablet 40 mg PO QHS 06/26/21 Unknown History chlorpheniramine maleate 4 mg 4 mg PO DAILY 06/26/21 Unknown History tablet cholecalciferol (vitamin D3) 125 125 mcg PO DAILY 06/26/21 Unknown History mcg (5,000 unit) tablet (Vitamin D3) clopidogrel 75 mg tablet (Plavix) 75 mg PO DAILY 06/26/21 05/05/24 History furosemide 20 mg tablet 20 mg PO PRN PRN Edema 06/26/21 Unknown History losartan 25 mg tablet 25 mg PO DAILY 06/26/21 Unknown History methenamine hippurate 1 gram tablet 1 g PO BID 06/26/21 Unknown History metoprolol tartrate 25 mg tablet 25 mg PO QHS 06/26/21 05/05/24 History nitroglycerin 0.4 mg sublingual 0.4 mg sublingual Q5M PRN CP 06/26/21 Unknown History tablet zinc 50 mg tablet 50 mg PO DAILY 06/26/21 Unknown History levothyroxine 112 mcg capsule 112 mcg PO DAILY 04/27/24 Unknown History Allergy/AdvReac Type Severity Reaction Status Date / Time Penicillins Allergy Rash Verified 05/06/24 07:24 Sulfa (Sulfonamide Allergy Rash Verified 05/06/24 07:24 Antibiotics) Surgical History History of appendectomy History of biopsy of bladder History of cardiac catheterization Hx of colonoscopy History of coronary artery stent placement Hx of foot surgery Hx of right cataract extraction Hx of left cataract extraction Hx laparoscopic cholecystectomy History of esophagogastroduodenoscopy (EGD) Hx of bilateral breast reduction surgery Hx of hysterectomy Social History Smoking Status: Never smoker Review of Systems (Anesthesia) ROS Narrative System reviewed and no additional complaints, except as documented.
--- NOTE | 2024-05-06 08:52 | PCM.HP.STD ---
[facility] - General General Date of Service: 05/06/24 Chief Complaint: microhematuria, Urinary tract infection [facility] Narrative MONTY KING, is a 83 F who presents for possible urethral dilation with pelvic exam and cystoscopy for a recent history of multiple urinary tract infections. She previously had a urethral stricture that was dilated under anesthesia and she prefers to have this done under anesthesia as well. Informed consent was obtained. She reports that she has had no gross hematuria. The blood in the urine that she discussed earlier was only seen by the practitioner and was treated with antibiotics. We will not proceed with bilateral ureteroscopy, this was discussed for gross hematuria. [facility] Medical History (Updated 05/06/24 @ 08:[address] Rena Rain MD) Other urethral stricture, female Microhematuria Hypothyroid Urinary tract infection Wears glasses Wears dentures Post-menopausal Redness of skin Thyroid disease Bladder disease History of renal disease High cholesterol Back pain History of hiatal hernia History of ulceration History of diverticulitis Heartburn Non-smoker COPD (chronic obstructive pulmonary disease) History of edema Hypertension Cardiology follow-up encounter History of heart attack Home Medications ?Medication ?Instructions ?Recorded ?Last Taken ?Type Lactobacillus acidophilus 250 1,000 mmu cells PO DAILY 06/26/21 Unknown History million cell capsule (Probiotic Acidophilus) albuterol sulfate 90 mcg/actuation 1 inh inhalation Q6H PRN SOB 06/26/21 Unknown History aerosol inhaler aspirin 81 mg tablet,delayed 81 mg PO DAILY 06/26/21 06/30/21 History release atorvastatin 40 mg tablet 40 mg PO QHS 06/26/21 Unknown History chlorpheniramine maleate 4 mg 4 mg PO DAILY 06/26/21 Unknown History tablet cholecalciferol (vitamin D3) 125 125 mcg PO DAILY 06/26/21 Unknown History mcg (5,000 unit) tablet (Vitamin D3) clopidogrel 75 mg tablet (Plavix) 75 mg PO DAILY 06/26/21 05/05/24 History furosemide 20 mg tablet 20 mg PO PRN PRN Edema 06/26/21 Unknown History losartan 25 mg tablet 25 mg PO DAILY 06/26/21 Unknown History methenamine hippurate 1 gram tablet 1 g PO BID 06/26/21 Unknown History metoprolol tartrate 25 mg tablet 25 mg PO QHS 06/26/21 05/05/24 History nitroglycerin 0.4 mg sublingual 0.4 mg sublingual Q5M PRN CP 06/26/21 Unknown History tablet zinc 50 mg tablet 50 mg PO DAILY 06/26/21 Unknown History levothyroxine 112 mcg capsule 112 mcg PO DAILY 04/27/24 Unknown History Allergy/AdvReac Type Severity Reaction Status Date / Time Penicillins Allergy Rash Verified 05/06/24 07:24 Sulfa (Sulfonamide Allergy Rash Verified 05/06/24 07:24 Antibiotics) Surgical History History of appendectomy History of biopsy of bladder History of cardiac catheterization Hx of colonoscopy History of coronary artery stent placement Hx of foot surgery Hx of right cataract extraction Hx of left cataract extraction Hx laparoscopic cholecystectomy History of esophagogastroduodenoscopy (EGD) Hx of bilateral breast reduction surgery Hx of hysterectomy Social History Smoking Status: Never smoker ROS Constitutional Constitutional: Reports systems reviewed and no addt'l complaints, except as documented; Denies chills, fatigue, fever(s), headache(s) or weakness Eyes Eyes: Reports systems reviewed and no addt'l complaints, except as documented ENT HEENT: Reports systems reviewed and no addt'l complaints, except as documented Cardiovascular Cardiovascular: Reports systems reviewed and no addt'l complaints, except as documented; Denies abdominal pain, chest pain or dyspnea Respiratory/Chest Respiratory/Chest: Reports systems reviewed and no addt'l complaints, except as documented; Denies change in mental status, chest congestion, cough or dyspnea Gastrointestinal Gastrointestinal: Reports systems reviewed and no addt'l complaints, except as documented; Denies abdominal pain, hematemesis, nausea or vomiting Genitourinary Genitourinary: Reports hematuria and urinary urgency; Denies dysuria or flank pain Musculoskeletal Musculoskeletal: Reports systems reviewed and no addt'l complaints, except as documented; Denies muscle weakness or numbness Integumentary Integumentary: Reports systems reviewed and no addt'l complaints, except as documented; Denies jaundice or lesions Neurologic Neurologic: Reports systems reviewed and no addt'l complaints, except as documented; Denies confusion or dizziness Psychiatric Psychiatric: Reports systems reviewed and no addt'l complaints, except as documented Endocrine Endocrinology: Reports systems reviewed and no addt'l complaints, except as documented Hematologic/Lymphatic Hematologic/Lymphatic: Reports systems reviewed and no addt'l complaints, except as documented Allergic/Immunologic Allergic/Immunologic: Reports systems reviewed and no addt'l complaints, except as documented Vital Signs Vital Signs Vital Signs: 05/06/24 07:27 05/06/24 07:27 05/06/24 07:56 Temperature 97.2 F L 97.2 F L Temperature Source Temporal Pulse Rate 62 62 Respiratory Rate 16 16 Respiratory Pattern Normal Blood Pressure 176/67 H 176/67 H Blood Pressure Mean 103 Blood Pressure Source Monitor Blood Pressure Position Semi-Fowlers Blood Pressure Location Left Arm Pulse Ox 99 99 Oxygen Delivery Method Room Air Weight Weight: 84.4 kg Body Mass Index (BMI) 30.0 Physical Exam Const alert, oriented x3 and no apparent distress HEENT normocephalic, head/scalp atraumatic, hearing grossly normal bilaterally, external ears normal, external nose normal and moist oral mucous membranes Eyes General Eye: normal appearance of both eyes Neck supple General: normal visual inspection and trachea midline Lymph Lymphatic: no lymphedema noted Chest inspection of chest normal Chest: symmetrical chest wall rise Resp normal respiratory effort, normal air movement, no retractions and no use of accessory muscles Effort and Inspection: able to speak in complete sentences and symmetric chest movement Cardio regular rate and regular rhythm GI soft to palpation, non-tender and non-distended no CVA tenderness Back/Spine no CVA tenderness Extremity normal to inspection Skin no rashes or lesions noted, no wounds, no jaundice, no petechiae and no mottling Neuro oriented x3, CN's II-XII intact bilaterally and moves all extremities Psych mental status grossly normal and thought process normal Assessment & Plan Assessment/Plan (1) Urinary tract infection: (2) Microhematuria: (3) Other urethral stricture, female: PLAN: Plan Proceed with pelvic exam under anesthesia, possible urethral stricture and cystoscopy Informed consent has been obtained
--- NOTE | 2024-05-06 08:59 | PCM.OPRPT ---
Operative Report (Standard) Operative Information Date of Procedure: 05/06/24 Pre-Operative Diagnosis: urinary tract infection, microhematuria, urethral stricture Post-Operative Diagnosis: same Surgery/Procedure Performed: pelvic exam, cystoscopy gwot ia/ilo intelligence support: No Type of Anesthesia: MAC RN Documented Start/Stop Times: Operation Date: 05/06/24 08:30 Case Time Into Pre-Op 05/06/24 07:13 Out of Pre-Op 05/06/24 08:55 Anesthesia Start 05/06/24 08:59 Into Room 05/06/24 08:59 Procedure Start 05/06/24 09:13 Procedure End 05/06/24 09:15 Anesthesia End 05/06/24 09:22 Out of Room 05/06/24 09:22 Procedure Start Time: 09:13 Procedure Stop Time: 09:15 Select all DRAINS/GRAFTS/IMPLANTS that apply: None Estimated Blood Loss: 1 cc Specimen collected: No Description of surgery: The patient is an 83-year-old female with a history of urinary tract infections, urethral stricture and microhematuria who presents for cystoscopy under anesthesia with possible urethral dilation and pelvic exam. Informed consent was obtained. The patient was taken to the operating room and placed on the operating room table. Anesthesia monitored the head, neck, airway, IV access and vital signs throughout the case. Once anesthesia was appropriately ministered, she was placed into dorsolithotomy position was prepped and draped in usual sterile fashion. Pelvic examination revealed no evidence of significant prolapse, small amount of soft stool within the rectal vault, no pelvic mass palpable. The cystoscope was inserted through the urethra without difficulty negating the need for urethral dilation. The bladder mucosa was visualized in its entirety revealing thin bladder lining with no mass, erythema or ulceration. There was some debris within the urinary bladder. The bladder was emptied and the cystoscope was removed. She was awakened and taken to the recovery room in good condition. There were no complications during this procedure. Surgical Findings: No pathologic findings Complications Complications: No Admit VTE Documentation VTE Present on Admission: Yes VTE Mechan Device Prophylaxis: SCD's VTE Pharm Prophylaxis ordered?: Yes
--- NOTE | 2024-05-06 09:00 | EX.PCM.DISCH ---
Discharge Instructions Diet Discharge Diet: No restrictions Activity Discharge Activity: Return to Normal Activity Dressing / Incision Call your doctor if you observe: Fever of 101 or Higher, Inability to urinate and Inability to have a bowel movement Follow Up Care Please Follow Up With: Rena Rain MD When: In the office in 4 weeks. Please tile picker samples of Gemtesa when able. Test Results: Test results from this visit will be discussed in further detail at your follow-up appointment, if applicable. Discharge Plan Admission Attending Provider: Rena Rain Primary Care Provider: Telma Ramos NP Instructions Print Language: Tunisian Discharge Orders/Prescriptions Prescriptions: New Gemtesa 75 mg tablet 75 mg PO DAILY Qty: 90 3RF Continued clopidogrel [Plavix] 75 mg Tablet 75 mg PO DAILY aspirin 81 mg Tablet,Delayed Release (Dr/Ec) 81 mg PO DAILY losartan 25 mg Tablet 25 mg PO DAILY zinc 50 mg Tablet 50 mg PO DAILY furosemide 20 mg Tablet 20 mg PO PRN PRN (Reason: Edema) albuterol sulfate 90 mcg/actuation Hfa Aerosol Inhaler 1 inh INHALATION Q6H PRN (Reason: SOB) cholecalciferol (vitamin D3) [Vitamin D3] 125 mcg (5,000 unit) Tablet 125 mcg PO DAILY Probiotic Acidophilus 1.5 mg (250 million cell) Capsule 1,000 mmu cells PO DAILY atorvastatin 40 mg Tablet 40 mg PO QHS methenamine hippurate 1 gram Tablet 1 g PO BID nitroglycerin 0.4 mg Tablet, Sublingual 0.4 mg SUBLINGUAL Q5M PRN (Reason: CP) metoprolol tartrate 25 mg Tablet 25 mg PO QHS chlorpheniramine maleate 4 mg Tablet 4 mg PO DAILY levothyroxine 112 mcg capsule 112 mcg PO DAILY Other Ambulatory Orders: Basic Metabolic Profile (BMP) (Routine) Timeframe: 20240428 Facility: [facility] - Location: Laboratory Ordered By: Dr. Rena Rain CBC-Complete Blood Cnt No Diff (Routine) Timeframe: 20240428 Facility: [facility] - Location: Laboratory Ordered By: Dr. Rena Rain Referrals / Follow Up: Telma Ramos NP, OVERHEAD CLEANER MAINTAINER-C [Primary Care Provider] - Disposition Disposition (needs filled in before D/C Order can be placed): Home, Self Care
[2024-05-06] MEDS: Ciprofloxacin 400 MG/200 ML BAG 200 MG IV (09:06)
--- NOTE | 2024-05-06 09:25 | PCM.POST.ANE ---
Anesthesia: Postop Eval I Current Vital Signs Temperature: 98 F Pulse Rate: 64 Blood Pressure: 130/68 Respiratory Rate: 20 Pulse Ox: 98 Oxygen Delivery Method: Room Air Assessment Airway patent: Yes Spontaneous unlabored respirations: Yes Mental status: Awake nausea: No Vomiting: No Anesthesia Complication: No Fluid Hydration Crystalloid volume administer (ml): 300 Total IV fluid infused: 300 Progress Note Anesthesia document: Postop Eval 1 completed: Yes
--- NOTE | 2024-05-06 11:43 | POSTOPAN2_ITS ---
Anesthesia Postop Eval I Sum Postop Eval Completion status Anesthesia document: Postop Eval 1 completed: Yes Anesthesia Postop Eval I Summary Anesthesia Postop Eval I Summary: Anesthesia Postop Eval I: Assessment Summary Airway patent Yes 05/06/24 09:26 [email or web address] [email or web address] Spontaneous unlabored Yes 05/06/24 09:26 STRAIGHTEDGE [email or web address] respirations Mental status Awake 05/06/24 09:26 [email or web address] [email or web address] nausea No 05/06/24 09:26 STRAIGHTEDGE WORKER.[email or web address] Vomiting No 05/06/24 09:26 STRAIGHTEDGE [email or web address] Anesthesia Postop Eval I: Fluid Summary Crystalloid volume administer 300 05/06/24 09:26 [email or web address] [email or web address] (ml) Colloids volume administered ( ml) Blood Product volume administered (ml) Total IV fluid infused 300 05/06/24 09:26 STRAIGHTEDGE [email or web address] Anesthesia Postop Eval I: Summary Notes Anesthesia Complication No 05/06/24 09:26 [email or web address] [email or web address] Anesthesia Complication Comment: Post-operative progress note Anesthesia: Postop Eval II Evaluation Mental status: Awake Pain Level: 0 nausea: No Vomiting: No
--- NOTE | 2024-05-06 11:43 | PCM.POSTANE2 ---
Anesthesia Postop Eval I Sum Postop Eval Completion status Anesthesia document: Postop Eval 1 completed: Yes Anesthesia Postop Eval I Summary Anesthesia Postop Eval I Summary: Anesthesia Postop Eval I: Assessment Summary Airway patent Yes 05/06/24 09:26 WORK [email or web address] Spontaneous unlabored Yes 05/06/24 09:26 WORK MANAGER.[email or web address] respirations Mental status Awake 05/06/24 09:26 WORK [email or web address] nausea No 05/06/24 09:26 WORK MANAGER.[email or web address] Vomiting No 05/06/24 09:26 WORK MANAGER.[email or web address] Anesthesia Postop Eval I: Fluid Summary Crystalloid volume administer 300 05/06/24 09:26 WORK [email or web address] (ml) Colloids volume administered ( ml) Blood Product volume administered (ml) Total IV fluid infused 300 05/06/24 09:26 WORK MANAGER.[email or web address] Anesthesia Postop Eval I: Summary Notes Anesthesia Complication No 05/06/24 09:26 WORK [email or web address] Anesthesia Complication Comment: Post-operative progress note Anesthesia: Postop Eval II Evaluation Mental status: Awake Pain Level: 0 nausea: No Vomiting: No
== END 2024-05-06 10:26 | disposition home or self-care (01) ==
LOC: SDC 07:10 → AC 07:11
PROVIDERS: PCP Nurse Practitioner Family; Referring Provider Urology; Visit Provider Urology
PROC: 0TJB8ZZ Inspection of Bladder, Via Natural or Artificial Opening Endoscopic (ICD-10-PCS; CPT 57410; principal; 2024-05-06 08:20)
DX: N39.0 Urinary tract infection, site not specified (principal); J44.9 Chronic obstructive pulmonary disease, unspecified; I10 Essential (primary) hypertension; N35.92 Unspecified urethral stricture, female; R31.29 Other microscopic hematuria; E78.00 Pure hypercholesterolemia, unspecified; Z79.02 Long term (current) use of antithrombotics/antiplatelets; Z87.440 Personal history of urinary (tract) infections; Z79.899 Other long term (current) drug therapy; E03.9 Hypothyroidism, unspecified; Z79.890 Hormone replacement therapy
CPT/HCPCS: 52000; 00910; J0744; J2405